=== PATIENT | female | born 1945 | race Hispanic/Latino ===

== ENCOUNTER → 2018-02-15 | Outpatient (CLI) | payer MEDICARE, BC ==
[~2018-02-15] MED LIST: GLUCOSAMINE &1 EAC1 PO; LORAZEPAM0.5 MG PO; Z FENOFIBRATE PO; Z.0.ALENDRONATE SOD7 PO; Z.0.METOPROLOL TART5 PO; Z.0.PRAVASTATIN SOD2 PO; [UNRECOGNIZED DRUG - OTHER] PO; [UNRECOGNIZED DRUG - OTHER] PO; [UNRECOGNIZED DRUG - OTHER] PO
--- NOTE | 2018-02-18 08:33 | Diagnostic Imaging Report ---
#[id number] - MGSCRBIL #BILATERAL DIGITAL SCREENING MAMMOGRAM WITH CAD: 02/15/2018 CLINICAL: Routine screening. Comparison is made to exams dated: 02/12/2017 mammogram and 12/08/2015 mammogram - [facility]. Current study contains 4 films. There are scattered fibroglandular elements in both breasts. Current study was also evaluated with a Computer Aided Detection (CAD) system. There are benign calcifications in both breasts. There also are benign vascular calcifications and a coarsely calcified mass in the right breast. Additionally there are benign lymph nodes in the left breast. There also are post operative findings in the right breast with a scar marker noted as well as surgical clips present. No significant masses, calcifications, or other findings are seen in either breast. There has been no significant interval change. IMPRESSION: BENIGN There is no mammographic evidence of malignancy. A 1 year screening mammogram is recommended. The patient will be notified by letter of the results. Heath Rivers Jr., D.O. cw/:02/15/2018 15:29:42 Senior [employer] Engineer: Kaitlin HARVEY)(M), [facility] letter sent: Compared to Prior B9 Mammogram BI-RADS: 2 Benign
== END ==
LOC: MAMMO 13:31
PROVIDERS: ATTEND Obstetrics & Gynecology
DX: Z12.31 Encounter for screening mammogram for malignant neoplasm of breast (principal)
CPT/HCPCS: 77067

== ENCOUNTER → 2018-04-24 | Outpatient (CLI) | payer MEDICARE, BC ==
--- NOTE | 2018-04-25 08:21 | Diagnostic Imaging Report ---
#[id number] - MGDXBIL #BILATERAL DIGITAL DIAGNOSTIC MAMMOGRAM WITH CAD: 04/24/2018 Comparison is made to exams dated: 02/15/2018 mammogram and 02/12/2017 mammogram - [facility]. There are scattered fibroglandular elements in both breasts. Current study was also evaluated with a Computer Aided Detection (CAD) system. There are benign calcifications in both breasts. There also are benign vascular calcifications and a calcified mass in the right breast. Additionally there are benign lymph nodes in the left breast. There also are post operative findings in the right breast with clips present. No significant masses, calcifications, or other findings are seen in either breast. There has been no significant interval change. IMPRESSION: BENIGN There is no mammographic evidence of malignancy. A 1 year screening mammogram is recommended. The patient will be notified by letter of the results. Heath Rivers Jr., D.O. cw/:04/24/2018 12:27:37 Director Of [facility] Service [facility]: Kaitlin SINGH(Keena)(Nargis), [facility] letter sent: Compared to Prior B9 Mammogram BI-RADS: 2 Benign
== END ==
LOC: MAMMO 09:29
PROVIDERS: ATTEND Obstetrics & Gynecology
DX: R92.2 Inconclusive mammogram (principal)
CPT/HCPCS: 77066

== ENCOUNTER → 2018-07-03 | Outpatient (CLI) | payer MEDICARE, BC ==
--- NOTE | 2018-07-04 10:11 | Diagnostic Imaging Report ---
TECHNIQUE: Magnetic resonance imaging of the LEFT ANKLE was performed WITHOUT injected contrast. HISTORY: Sprain, fall COMPARISON: None available. FINDINGS: LIGAMENTS: Medial Complex: Intact Lateral Complex: Intact, including the tibiofibular ligaments. TENDONS: Medial: Mild thickening, subtle contour irregularity, and adjacent fluid about the distal posterior tibial tendon. The flexor digitorum longus tendon and flexor hallucis longus tendon are intact. Lateral: Intact Anterior: Intact Achilles: Minimal intrasubstance degeneration of the distal tendon with mild adjacent subcortical cystic changes of the calcaneus. BONES: No focal or infiltrative bone marrow replacing abnormality. No acute fracture or osteonecrosis. Small plantar calcaneal and dorsal calcaneal enthesophytes. JOINTS: Cartilage: Multifocal degenerative changes, most notably focal high-grade to full-thickness erosions of the middle subtalar joint, talonavicular joint, and calcaneocuboid joint, with adjacent mild reactive subchondral bone marrow edema. Other: Fluid within the joints is within physiologic limits. SOFT TISSUES: Mild medial soft tissue edema. IMPRESSION: 1. Distal posterior tibial tendinosis and tenosynovitis along with mild very low-grade partial-thickness degenerative tearing. The sequela of a superimposed acute injury is possible given the provided history. 2. Minimal distal Achilles tendinosis and chronic enthesopathy. 3. 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 Signed by: Dr. Jarocho Robles D.O., M.M.M. on 07/04/2018 10:08 AM
== END ==
LOC: MRI 14:43
PROVIDERS: ATTEND Specialist
DX: S93.492A Sprain of other ligament of left ankle, initial encounter (principal)

== ENCOUNTER → 2019-04-28 | Outpatient (CLI) | payer MEDICARE, BC ==
--- NOTE | 2019-04-28 16:27 | Diagnostic Imaging Report ---
Bone Mineral Density, 04/28/2019. Clinical History: Menopause, Osteoporosis Screening Findings: Bone Mineral Density Measurement (BMD) - Lumbar Spine: 1.193 gm/cm2 Left Femoral Neck: 0.689 gm/cm2 Standard Deviation as compared to the young adult population (T -score)- Lumbar Spine: 1.3 Left Femoral Neck: -1.6 Standard Deviation as compared to the age matched controls (Z-score)- Lumbar Spine: 3.6 Left Femoral Neck: 0.4 IMPRESSION: These findings are consistent with a normal bone mineral density of the lumbar spine. There is no increased risk of an osteoporotic fracture of the lumbar spine as compared to the young adult population. These findings are consistent with osteopenia of the femoral necks. There is a 1-2 times increased risk of an osteoporotic fracture of the femoral necks as compared to the young adult population. Diagnostic criteria (World Health Organization)- Normal: BMD measurement less than one standard deviation from young adult population Osteopenia: BMD measurement between 1 and 2.5 standard deviations below Osteoporosis: BMD measurement greater than 2.5 standard deviations below Severe osteoporosis: Osteoporosis and one or more fragility fractures Signed by: Morris Graham MD on 04/28/2019 4:24 PM
--- NOTE | 2019-05-02 08:24 | Diagnostic Imaging Report ---
#[id number] - MGSCRBIL #BILATERAL DIGITAL SCREENING MAMMOGRAM WITH CAD: 04/28/2019 CLINICAL: Routine screening. Comparison is made to exams dated: 04/24/2018 mammogram, 02/15/2018 mammogram and 02/12/2017 mammogram - [facility]. Current study contains 6 films. There are scattered fibroglandular elements in both breasts. Current study was also evaluated with a Computer Aided Detection (CAD) system. There are benign vascular calcifications and a stable calcified mass in the right breast. There also are post operative findings in the right breast with clips present. No significant masses, calcifications, or other findings are seen in either breast. IMPRESSION: BENIGN There is no mammographic evidence of malignancy. A 1 year screening mammogram is recommended. The patient will be notified by letter of the results. AMILCAR METZGER M.D. ct/penrad:05/01/2019 17:17:05 Campaign Specialist: Kaitlin SINGH(Keena)(Nargis), [facility] letter sent: Normal Exam Mammogram BI-RADS: 2 Benign
== END ==
LOC: MAMMO 07:41
PROVIDERS: ATTEND Obstetrics & Gynecology
DX: Z12.31 Encounter for screening mammogram for malignant neoplasm of breast (principal); Z78.0 Asymptomatic menopausal state
CPT/HCPCS: 77067; 77080

== ENCOUNTER → 2020-04-02 | Outpatient (CLI) | payer MEDICARE, BC | LOC: MAMMO 11:04 | PROVIDERS: ATTEND Internal Medicine | DX: Z12.31 Encounter for screening mammogram for malignant neoplasm of breast (principal); M81.0 Age-related osteoporosis without current pathological fracture; I12.9 Hypertensive chronic kidney disease with stage 1 through stage 4 chronic kidney disease, or unspecified chronic kidney disease | CPT/HCPCS: 71046; 77067; 77080 ==

== ENCOUNTER → 2021-05-04 | Outpatient (CLI) | payer MEDICARE, BC | LOC: MAMMO 11:30 | PROVIDERS: ATTEND Internal Medicine Hematology & Oncology | DX: Z12.31 Encounter for screening mammogram for malignant neoplasm of breast (principal); M85.88 Other specified disorders of bone density and structure, other site; I49.9 Cardiac arrhythmia, unspecified; I10 Essential (primary) hypertension; E66.9 Obesity, unspecified; Z85.3 Personal history of malignant neoplasm of breast | CPT/HCPCS: 77067; 77080 ==